=== PATIENT | female | born 1975 | race Two or more races ===

== ENCOUNTER → 2024-07-30 | Outpatient (CLI) | payer MEDICAID, SELFPAY ==
--- NOTE | 2024-07-30 09:45 | XR_ITS ---
Examination: Abdomen sonogram, complete Date and time of exam: July 30, 2024 10:00 AM INDICATIONS: Left upper abdominal pain beginning 3 months ago. Technique: Multiple real-time grayscale transabdominal sonographic images of the abdomen have been obtained. Findings: Normal gallbladder Normal common bile duct 0.4 cm Pancreatic head 2.5 cm Aorta not enlarged Liver 14 cm fatty infiltration smooth contour no focal liver lesions Normal hepatopedal portal venous flow Patent IVC Right kidney 10.5 x 4.3 x 4.7 cm cortex 1.4 cm Left kidney 10.6 x 4.5 x 4.7 cm renal cortex 1.9 cm Mild bilateral renal parenchymal scar formation Spleen 9.3 cm with 6 x 5 x 5 mm splenic lesion IMPRESSION: Normal gallbladder Fatty liver Mild bilateral renal parenchymal scar formation 6 x 5 x 5 mm splenic lesion, recommend CT scan abdomen liver spleen follow-up post intravenous contrast
== END | disposition home or self-care (01) ==
PROVIDERS: PCP Nurse Practitioner Family; Referring Provider Nurse Practitioner Family; Visit Provider Nurse Practitioner Family
DX: K76.0 Fatty (change of) liver, not elsewhere classified (principal); N28.89 Other specified disorders of kidney and ureter; D73.89 Other diseases of spleen
CPT/HCPCS: 76700

== ENCOUNTER → 2024-08-27 | Outpatient (CLI) | payer MEDICAID, SELFPAY ==
--- NOTE | 2024-08-27 09:30 | XR_ITS ---
Examination: CT abdomen with intravenous contrast. Coronal 2-D reconstructions. Sagittal 2-D reconstructions. Date and time of exam:August 27, 2024 0932 hours INDICATIONS: Left abdominal pain one year, abdomen sonogram July 30, 2024 6 x 5 x 5 mm splenic lesion CTDI: vol (mGy): 12 DLP: (mGycm): 372 Technique: Axial images of the abdomen have been obtained, 3 mm slice thickness, 60 cc Isovue-370 2-D sagittal coronal reconstructions Low dose protocols were performed. One or more of the following dose reduction techniques were used; automated exposure control, adjustment of the mA and/or KV according to patient size, use of iterative reconstruction technique. Findings: Diffuse fatty infiltration throughout the liver 5 mm hyperechoic splenic lesion No pancreatic mass No gallstones Spleen is not enlarged No renal or ureteral calculi, no hydronephrosis Aorta normal size Small fat-containing umbilical hernia Normal appendix No diverticulitis IMPRESSION: 5 mm hyperechoic probably benign splenic lesion Recommend 6 month ultrasound spleen follow-up
== END | disposition home or self-care (01) ==
LOC: CCTX 09:00
PROVIDERS: Referring Provider Physician Assistant; Visit Provider Physician Assistant
DX: D73.89 Other diseases of spleen (principal)
CPT/HCPCS: 74160; A4649; Q9967

== ENCOUNTER → 2024-09-24 | Outpatient (CLI) | payer MEDICAID, SELFPAY ==
--- NOTE | 2024-09-24 08:00 | XR_ITS ---
Examination: Pelvic ultrasound, transabdominal, complete Technique: Transabdominal ultrasound of the pelvis performed using grayscale imaging Date and time of exam: September 24, 2024 0806 hours INDICATIONS: Pelvic sonogram June 30, 2024 left adnexal mass 2.0 x 1.7 x 1.8 cm consider dermoid tumor FINDINGS: Uterus 11.4 x 5.9 x 8.4 cm Posterior fundal area of fibroid degeneration 14 x 9 x 13 mm Endometrial stripe 0.7 cm Right ovary 3.3 cm arterial flow Left ovary 5.0 cm arterial flow, solid mass 15 x 12 x 14 mm Adjacent 20 mm x 25 mm cyst IMPRESSION: 14 mm area of uterine fibroid degeneration Left ovarian solid mass 15 x 12 x 14 mm, consider dermoid tumor
== END | disposition home or self-care (01) ==
LOC: CDIM 07:29
PROVIDERS: PCP Nurse Practitioner Family; Referring Provider Obstetrics & Gynecology; Visit Provider Obstetrics & Gynecology
DX: D25.9 Leiomyoma of uterus, unspecified (principal); N83.8 Other noninflammatory disorders of ovary, fallopian tube and broad ligament
CPT/HCPCS: 76856

== ENCOUNTER → 2024-09-25 | Outpatient (CLI) | payer MEDICAID, SELFPAY ==
--- NOTE | 2024-09-25 13:30 | XR_ITS ---
Examination: Transvaginal ultrasound of the pelvis, complete Technique: Transvaginal sonographic images pelvis performed using ware scale imaging Exam date and time: September 25, 2024 1402 hours INDICATIONS: Pelvic pain beginning 3 years ago with history uterine fibroid degeneration 14 mm posterior fundal area on prior ultrasound FINDINGS: Uterus 10.9 x 5.7 x 7.4 cm Uterine body area of fibroid degeneration 17 x 17 mm Endometrial stripe 1.1 cm Right ovary obscured by bowel gas Left ovary 2.9 x 2.3 x 2.8 cm arterial flow, 15 x 14 x 8 mm solid mass left ovary IMPRESSION: Solid left ovarian mass, 15 x 14 x 18 mm, consider early left ovarian tumor Recommend MRI pelvis follow-up pre and postcontrast.
== END | disposition home or self-care (01) ==
PROVIDERS: PCP Nurse Practitioner Family; Referring Provider Obstetrics & Gynecology; Visit Provider Obstetrics & Gynecology
DX: N83.8 Other noninflammatory disorders of ovary, fallopian tube and broad ligament (principal)
CPT/HCPCS: 76830

== ENCOUNTER → 2024-11-10 | Outpatient (CLI) | payer MEDICAID, SELFPAY ==
--- NOTE | 2024-11-10 12:19 | XR_ITS ---
Examination: Knee, left , 3 views Technique: Knee AP, lateral, oblique 3 views Date and time of exam: November 10, 2024 1313 hours INDICATIONS: Left knee pain beginning 3 weeks ago. FINDINGS: Mild osteopenia Mild tricompartment osteoarthritis No fracture or dislocation IMPRESSION: Mild tricompartment osteoarthritis
== END | disposition home or self-care (01) ==
LOC: CDIM 12:13
PROVIDERS: PCP Nurse Practitioner Family; Referring Provider Internal Medicine Rheumatology; Visit Provider Internal Medicine Rheumatology
DX: M17.12 Unilateral primary osteoarthritis, left knee (principal)
CPT/HCPCS: 73562

== ENCOUNTER → 2025-01-27 | Outpatient (CLI) | payer MEDICAID, SELFPAY ==
--- NOTE | 2025-01-27 | XR_ITS ---
Examination: Knee, right , 3 views Technique: Knee AP, lateral, oblique 3 views Date and time of exam: 2024 1148 hours INDICATIONS: Right knee pain beginning 3 months ago. FINDINGS: Moderate osteopenia Mild to moderate narrowing medial patellofemoral joints No fractures No ossified joint bodies IMPRESSION: Mild to moderate narrowing medial patellofemoral joints
== END | disposition home or self-care (01) ==
PROVIDERS: PCP Nurse Practitioner Family; Referring Provider Nurse Practitioner; Visit Provider Nurse Practitioner
DX: M85.861 Other specified disorders of bone density and structure, right lower leg (principal)
CPT/HCPCS: 73562

== ENCOUNTER → 2025-02-17 | Outpatient (CLI) | payer MEDICAID, SELFPAY ==
--- NOTE | 2025-02-17 12:20 | XR_ITS ---
Examination: Bone densitometry Date and time of exam:February 17, 2025 1248 hours INDICATIONS: Premenopausal, rheumatoid arthritis diagnosis Technique: Lumbar spine and hip total bone mineralization values of an calculated. Peak reference and age match control results have been displayed. Findings: Lumbar spine total bone mineralization is1.192 gm/cm2. This is 1.3 standard deviations above peak reference. This is 2.1 standard deviations above age-matched controls. Hip total bone mineralization is 1.008 gm/cm2 This is 0.3 standard deviations above peak reference. This is 0.8 standard deviations above age-matched controls Impression: There is normal mineralization based on lumbar spine measurements. There is normal mineralization based on hip measurements
== END | disposition home or self-care (01) ==
PROVIDERS: PCP Nurse Practitioner Family; Referring Provider Internal Medicine Rheumatology; Visit Provider Internal Medicine Rheumatology
DX: M85.80 Other specified disorders of bone density and structure, unspecified site (principal)
CPT/HCPCS: 77080

== ENCOUNTER → 2025-02-18 | Outpatient (CLI) | payer MEDICAID, SELFPAY ==
--- NOTE | 2025-02-18 12:30 | XR_ITS ---
Examination: Ultrasound soft tissue neck TECHNIQUE: Grayscale sonographic images soft tissue neck Date and time: February 18, 2025 1057 hours INDICATIONS: Left neck swelling beginning one year ago FINDINGS: Multiple small lymph nodes at the area concern, the largest 9 x 5 mm IMPRESSION: Multiple small lymph nodes at the area concern, the largest 9 x 5 mm
== END | disposition home or self-care (01) ==
PROVIDERS: PCP Nurse Practitioner Family; Referring Provider Nurse Practitioner Family; Visit Provider Nurse Practitioner Family
DX: M85.80 Other specified disorders of bone density and structure, unspecified site (principal)
CPT/HCPCS: 76536

== ENCOUNTER → 2025-02-23 | Outpatient (CLI) | payer MEDICAID, SELFPAY ==
--- NOTE | 2025-02-23 07:15 | XR_ITS ---
Examination: Abdomen sonogram, complete Date and time of exam: February 23, 2025 0821 hours INDICATIONS: 5 [address] on [address] abdomen August 27, 2024. Technique: Multiple real-time grayscale transabdominal sonographic images of the abdomen have been obtained. Findings: Normal gallbladder Common bile duct 0.4 cm Pancreatic head 2.3 cm Aorta not enlarged Liver 13.2 cm smooth contour no focal liver lesions Normal hepatopedal portal venous flow Patent IVC Right kidney 10.7 cm cortex 1.5 cm Left kidney 11.1 cm cortex 1.8 cm Mild renal parenchymal scar formation Spleen 9.2 cm with 7 mm splenic lesion, likely benign IMPRESSION: Normal gallbladder Stable splenic lesion 7 x 4 x 7 mm, likely granuloma
== END | disposition home or self-care (01) ==
PROVIDERS: PCP Nurse Practitioner Family; Referring Provider Nurse Practitioner Family; Visit Provider Nurse Practitioner Family
DX: D73.89 Other diseases of spleen (principal)
CPT/HCPCS: 76700

== ENCOUNTER → 2025-02-24 | Outpatient (CLI) | payer MEDICAID, SELFPAY ==
--- NOTE | 2025-02-24 10:15 | XR_ITS ---
Examination: Screening digital mammography, bilateral Computer aided detection 3-D breast Tomosynthesis, bilateral Date and time of exam: February 24, 2025 0951 hours Compared to mammograms dating to December 25, 2021 Indication: Screening Technique: Nonmagnified MLO, CC views of the breasts to been obtained, reconstructed from 3-D Tomosynthesis images. R2 computer aided detection program utilized for evaluation of suspicious masses and/or abnormal calcifications. 3-D Tomosynthesis images obtained. Findings: Scattered areas of fibroglandular density. Benign calcifications. No interval suspicious masses Impression: BI-RADS category II: Benign Findings. Recommend 1 year follow-up mammogram.
== END | disposition home or self-care (01) ==
LOC: CDIM 09:41
PROVIDERS: Referring Provider Nurse Practitioner Family; Visit Provider Nurse Practitioner Family
DX: Z12.31 Encounter for screening mammogram for malignant neoplasm of breast (principal); R92.323 Mammographic fibroglandular density, bilateral breasts; R92.1 Mammographic calcification found on diagnostic imaging of breast
CPT/HCPCS: 77063; 77067

== ENCOUNTER → 2025-03-05 | Outpatient (CLI) | payer MEDICAID, SELFPAY ==
--- NOTE | 2025-03-05 10:00 | XR_ITS ---
Examination: Carotid arterial duplex scan, ultrasound. Date and time of exam: March 05, 2025 0938 hours INDICATIONS: Bilateral ear ringing one month, family history ischemic heart disease Technique: Multiple sonographic images have been obtained of the carotid arteries and vertebral arteries, B-mode/grayscale imaging and Doppler spectral analysis and color flow Peak systolic and diastolic velocities have been recorded. Systolic diastolic ratios have been calculated. Findings: Right peak systolic velocities: Distal internal carotid artery peak systolic velocity is 1.2 M/sec Proximal internal carotid artery peak systolic velocity is 0.7 M/sec Carotid bifurcation peak systolic velocity is 0.9 M/sec External carotid artery peak systolic velocity is 0.8 M/sec Vertebral artery flow is antegrade. Left peak systolic velocities: Distal internal carotid artery peak systolic velocity is 1.2 M/sec Proximal internal carotid artery peak systolic velocity is 1.1 M/sec Carotid bifurcation peak systolic velocity is 0.8 M/sec External carotid artery peak systolic velocity is 0.8 M/sec Vertebral artery flow is antegrade Doppler waveform analysis demonstrates no spectral broadening Impression: Right internal carotid artery demonstrates 10-30% stenosis. Left internal carotid artery demonstrates 10-30% stenosis.
== END | disposition home or self-care (01) ==
PROVIDERS: PCP Nurse Practitioner Family; Referring Provider Nurse Practitioner Family; Visit Provider Nurse Practitioner Family
DX: I65.23 Occlusion and stenosis of bilateral carotid arteries (principal); Z82.49 Family history of ischemic heart disease and other diseases of the circulatory system
CPT/HCPCS: 93880

== ENCOUNTER → 2025-03-31 | Outpatient (CLI) | payer MEDICAID, SELFPAY ==
--- NOTE | 2025-03-31 11:41 | XR_ITS ---
Examination: CT soft tissue neck, with intravenous contrast. CT soft tissue neck without intravenous contrast 2-D coronal reconstructions. 2-D sagittal reconstructions. Date and time of exam :March 31, 2025 1140 hours INDICATIONS: Palpable masses and pain in the left neck one year. CTDI: vol (mGy):22.9 DLP: (mGycm):670 Technique: 1.25 mm axial sections of the neck of the obtained, pre and post 50 cc Isovue-370. Coronal and sagittal reconstructions have been obtained. Low dose protocols were performed. One or more of the following dose reduction techniques were used; automated exposure control, adjustment of the mA and/or KV according to patient size, use of iterative reconstruction technique. Findings: Symmetrical optic globes Symmetrical nasopharynx oropharynx Parotid glands are not enlarged Symmetrical submandibular glands No pathologic carotid triangle or submental lymphadenopathy Thyroid lobes are not enlarged no thyroid nodules Normal epiglottis. No prevertebral soft tissue prominence IMPRESSION: No oropharyngeal or nasopharyngeal mass No pathologic lymphadenopathy Recommend ultrasound soft tissue neck follow-up of any palpable abnormalities in the left neck
== END | disposition home or self-care (01) ==
LOC: CCTX 09:42
PROVIDERS: PCP Nurse Practitioner Family; Referring Provider Nurse Practitioner Family; Visit Provider Nurse Practitioner Family
DX: R59.0 Localized enlarged lymph nodes (principal)
CPT/HCPCS: 70492; A4649; Q9967

== ENCOUNTER → 2025-05-17 | Outpatient (CLI) | payer MEDICAID, SELFPAY ==
--- NOTE | 2025-05-17 11:30 | XR_ITS ---
Examination: Transvaginal ultrasound of the pelvis, complete Technique: Transvaginal sonographic images pelvis performed using ware scale imaging Exam date and time: May 17, 2025, 1128 hours INDICATIONS: Pelvic sonogram September 25, 2024 solid left ovarian mass 15 x 14 x 18 mm FINDINGS: Uterus 10.6 cm endometrial stripe 1.1 cm No uterine mass Right ovary 2.4 cm arterial flow Left ovary 7.5 cm arterial flow 25 mm 57 mm cyst 17 x 15 x 19 mm solid mass left ovary IMPRESSION: Recommend MRI pelvis follow-up pre and postcontrast, to assess the solid mass left ovary 17 x 15 x 19 mm, differential including early solid left ovarian tumor.
== END | disposition home or self-care (01) ==
PROVIDERS: PCP Nurse Practitioner Family; Referring Provider Obstetrics & Gynecology; Visit Provider Obstetrics & Gynecology
DX: N83.8 Other noninflammatory disorders of ovary, fallopian tube and broad ligament (principal)
CPT/HCPCS: 76830